=== PATIENT | male | born 1965 | race Caucasian/White ===

== ENCOUNTER → 2018-06-08 | Outpatient (CLI) | payer BC ==
--- NOTE | 2018-06-08 11:57 | US ---
EXAMINATION TYPE: US venous doppler duplex LE RT DATE OF EXAM: 06/08/2018 11:32 AM COMPARISON: NONE CLINICAL HISTORY: M79.661 Pain R leg,M79.662 Pain L leg,R22.41 Swell. Varicose vein laser surgery rig ht leg 06/04/18. Tenderness right leg SIDE PERFORMED: right TECHNIQUE: The lower extremity deep venous system is examined utilizing real time linear array sonog melissa with graded compression, doppler sonography and color-flow sonography. VESSELS IMAGED: External Iliac Vein (EIV) Common Femoral Vein Deep Femoral Vein Greater Saphenous Vein * Femoral Vein Popliteal Vein Small Saphenous Vein * Proximal Calf Veins (* superficial vessels) Grayscale, color doppler, spectral doppler imaging performed of the deep veins of the right lower ext remity. There is normal flow, compressibility, vascular waveforms. Right Leg: No evidence of DVT. Superficial thrombus noted right lower thigh extending into mid calf IMPRESSION: 1. No evidence of deep venous thrombosis within the right lower extremity. 2. Positive superficial venous thrombosis with extent from the right thigh into the mid calf.
== END | disposition home or self-care (01) ==
LOC: RADUSWWP 10:57
PROVIDERS: ATTEND Internal Medicine
DX: I82.811 Embolism and thrombosis of superficial veins of right lower extremity (principal); R22.42 Localized swelling, mass and lump, left lower limb; M79.662 Pain in left lower leg